=== PATIENT | male | born 1995 | race Caucasian/White ===

== ENCOUNTER 2018-04-07 12:22 | Day surgery (SDC) | payer OTHER ==
[2018-04-06 15:09] VITALS: BMI 28.7
[2018-04-07] MEDS ORDERED: CEFAZOLIN 1 GM/D5W 1 GM/50 ML BAG ONE (13:19)
[2018-04-07] MEDS ORDERED: ceFAZolin SODIUM 1 GM VIAL IVPB ONE (16:15)
[2018-04-07] MEDS ORDERED: MIDAZOLAM HCL 2 MG/2 ML SINGLE DOSE VIAL ONE (16:18)
[2018-04-07] MEDS ORDERED: KETOROLAC TROMETHAMINE 30 MG/1 ML VIAL ONE (16:50)
[2018-04-07] MEDS ORDERED: KETAMINE HCL 200 MG/20 ML VIAL ONE (16:51)
[2018-04-07] MEDS ORDERED: fentaNYL CITRATE 250 MCG/5 ML VIAL ONE (17:32)
[2018-04-07] MEDS ORDERED: BUPIVACAINE HCL/PF 0.5% (5MG/ML) 10 ML VIAL IJ ONE ×2 (17:37)
[2018-04-07] MEDS ORDERED: BACITRACIN 15 GM TUBE TOPICAL OINTMENT ONE (19:48)
[2018-04-07] MEDS ORDERED: BACITRACIN 15 GM TUBE TOPICAL OINTMENT TP ONE (19:49)
[2018-04-07] MEDS ORDERED: GLYCOPYRROLATE 0.2 MG/1 ML VIAL ONE ×2 (19:51→19:54)
[2018-04-07] MEDS ORDERED: NEOSTIGMINE METHYLSULFATE 0.5 MG/ML - 10 ML MDV ONE (19:51)
[2018-04-07] MEDS ORDERED: PROMETHAZINE HCL 25 MG/1 ML VIAL IVPUSH PRN (20:20)
[2018-04-07] MEDS ORDERED: ONDANSETRON 4 MG/2 ML VIAL IVPUSH PRN (20:20)
[2018-04-07] MEDS ORDERED: oxyCODONE HCL 5 MG TABLET PO PRN ×3 (20:20→20:35)
[2018-04-07] MEDS ORDERED: LACTATED RINGERS SOLUTION 1,000 ML IV SCH ×2 (20:30→20:45)
[2018-04-07] MEDS ORDERED: ONDANSETRON 4 MG/2 ML VIAL IVPB PRN (20:35)
--- NOTE | 2018-04-07 20:38 | OP ---
Operative Note - Note: Operative Date: 04/07/18 Pre-Operative Diagnosis: right indes and ring finger nerve tendon bone injuries Operation: right index perc pinning of fracture and nerve tendon repair. Right long finger nerve tendon repair with perc pinning of fractures Post-Operative Diagnosis: Same as Pre-op Surgeon: Narendra Matamoros
[2018-04-07 21:33] VITALS: BP 125/71; PULSE 93; TEMP 98.3
--- NOTE | 2018-04-08 09:22 | OP ---
DATE OF OPERATION: 04/07/2018 TITLE OF PROCEDURE: Right index finger closed reduction and percutaneous pinning of middle phalanx fracture. Right index finger zone 1 flexor digitorum profundus repair. Right index finger radial digital nerve repair. Right long finger closed reduction and percutaneous pinning of distal phalanx fracture. Right long finger closed reduction and percutaneous pinning of middle phalanx fracture. Right long finger zone 1 flexor digitorum profundus repair. Right long finger radial digital nerve exploration using operative microscope without repair. ATTENDING SURGEON: Narendra Newton MD ASSISTANTS: There were no assistants. ANESTHESIA: General endotracheal anesthesia. The patient was given a total of 3 mL of 0.5% Marcaine plain to each finger as a digital block at the end of the procedure. DESCRIPTION OF PROCEDURE: Patient and family are counseled on all risks, benefits and alternatives to the procedure, understand, and agree to proceed. The procedure as follows. The appropriate digits and hand are marked. The patient is brought to the operating room and placed in supine position. Position is carefully checked by surgical and anesthesia teams. Sequential compression stockings and GISSELLE hose are applied. The patient is then fitted with a tourniquet to be used during the operation. He is prepped and draped in standard surgical fashion. A timeout is called. Patient, procedure, side and site are verified. At this point, the mini-fluoroscopy C-arm is brought into the OR and fluoroscopy x-rays are taken to assess the status of the fractures. These fractures are transverse fractures of the middle phalanx on both the long and index fingers and a transverse fracture of the midshaft of the distal phalanx on the long finger. It appears that they have displaced slightly since his last office visit and decision is made for percutaneous pinning with live C-arm fluoroscopy and retrograde advancement of 0.045 K-wires across the fracture sites under live vision is performed. The index finger is performed, first. Crossed K-wires are used, not crossing either the DIP or PIP joint. Good purchase of the bone on either side of the bone is achieved with excellent reduction. There is no rotation or angulation noted either clinically or on the image. Attention is then directed toward the long finger where because there are fractures of each of the distal and middle phalanx, parallel wires are used crossing the DIP joint affixing both the distal and middle phalanxes. Again, a good reduction is achieved. The reduction is stable. There is good purchase of bone on either side of both fractures. There is no rotation or angulation seen either clinically on in the image. The C-arm is removed. The patient's hand is then elevated, Esmarch-exsanguinated. Tourniquet is elevated. Total tourniquet pressure is 225 mmHg. Total tourniquet time for this case is 76 minutes. Under tourniquet, the incisions are reopened and first the index finger is dissected. A skin flap is created. It is clear that there is a partial digital nerve injury to the trifurcating point of the nerve just distal to the DIP crease on the radial side. Despite exploration under loupe magnification and with the operative microscope, I am unable to find a distal end for this nerve. It is noted that the patient had a highly destructive injury. The level of injury is distal to the DIP crease. The decision is made to perform an end-to-side anastomosis of this proximal branch of the nerve to the branch that appears to be intact. This is done under the operative microscope with an 8-0 nylon epineural technique end-to-side, as described. Attention is then directed toward the flexor tendon sheath where it is identified that more than half of the insertion of the flexor digitorum profundus is intact. However, there is a clear partial rent on the radial side of the flexor digitorum profundus. This is easily repaired with two separate [id number] 4-0 nylon sutures to the distal tendon stump and to the proximal tendon. This is in a portion of the tendon that will not be gliding at all and the repair serves as a reinforcement of the partial injury at the level of the insertion into the distal phalanx. As there is adequate distal tendon for purchase, a bone anchor is not required. The finger is irrigated and attention is then directed toward the long finger where the skin flaps are re-elevated. Again, a clear digital nerve injury on the radial side is able to be seen. In this case, it appears that all three trifurcating branches are injured. However, the level of injury is more distal. I am able to trace these proximal branches to the level of the base of the nail fold. However, I am again unable to find a distal branch for repair. This is despite dissection and searching under loupe magnification of multiple strengths, as well as under the high-power operative microscope. The only possibility here is to bury these nerve branches in the deep fat for prevention of a clinically relevant neuroma. This is done with an 8-0 nylon suture into the deep fat next to the periosteum. The tendon sheath is then inspected. A similar injury to the flexor digitorum profundus is seen on the radial portion of the tendon. This is repaired with a single [id number] 4-0 nylon suture. Again, this is a repair really at the most-distal end of the inserting tendon and will not be gliding in the tendon sheath and serving as a reinforcement to its insertion to prevent a later avulsion injury. The wounds are copiously irrigated with normal saline. The tourniquet is released at 76 minutes. The fingertips are pink and viable. The skin is closed with a series of interrupted 5-0 nylon suture. A dressing of bacitracin, Xeroform, Mary, and a dorsal shell, 4-inch Orthoglass splint is applied with a 4-inch Jeremy wrap. A sling is applied to the patient. He is awoken from anesthesia, having tolerated procedure well, transferred to recovery without complication. Please note that prior to final closure, a total of 3 mL of 0.5% Marcaine plain is injected as a digital block to each of these two fingers. NARENDRA NEWTON M.D. SUSIE/[id number]
== END 2018-04-07 22:50 | disposition home or self-care (01) ==
LOC: JASU-SURG 12:22 → J6S 21:28 → JASU-SURG 22:50
PROVIDERS: ATTEND Plastic Surgery
PROC: 0LQ70ZZ Repair Right Hand Tendon, Open Approach (ICD-10-PCS; 2018-04-07)
PROC: 01Q60ZZ Repair Radial Nerve, Open Approach (ICD-10-PCS; 2018-04-07)
PROC: 0PSTXZZ Reposition Right Finger Phalanx, External Approach (ICD-10-PCS; 2018-04-07)
PROC: 0PST34Z Reposition Right Finger Phalanx with Internal Fixation Device, Percutaneous Approach (ICD-10-PCS; principal; 2018-04-07 14:15)
DX: S62.620D Displaced fracture of middle phalanx of right index finger, subsequent encounter for fracture with routine healing (principal); S66.120D Laceration of flexor muscle, fascia and tendon of right index finger at wrist and hand level, subsequent encounter; S64.490D Injury of digital nerve of right index finger, subsequent encounter; S62.622D Displaced fracture of middle phalanx of right middle finger, subsequent encounter for fracture with routine healing; S62.632D Displaced fracture of distal phalanx of right middle finger, subsequent encounter for fracture with routine healing; S66.122D Laceration of flexor muscle, fascia and tendon of right middle finger at wrist and hand level, subsequent encounter; S64.492D Injury of digital nerve of right middle finger, subsequent encounter; X58.XXXA Exposure to other specified factors, initial encounter; Y93.9 Activity, unspecified; Y92.9 Unspecified place or not applicable
CPT/HCPCS: 76000-TC-FY; 94760